=== PATIENT | female | born 1955 | race Caucasian/White ===

== ENCOUNTER 2023-06-22 10:32 | Outpatient (OUT) | payer MEDICARE, OTHER, SELFPAY ==
--- NOTE | 2023-06-22 10:51 | MM_ITS ---
Patient Name: RADHA PAUL MR#: [id number] : 1955 Exam Date: 06/22/2023 Ordering Doctor: Non-Staff Physician RADIOLOGY REPORT PROCEDURE: MM TOMOSYNTHESIS SCREENING BI COMPARISON: None. INDICATIONS: screening Calculator Name NCI Breast Cancer Risk Assessment Tool 5 Year Breast Cancer Risk 1.40% Lifetime Breast Cancer Risk 4.10% Personal Breast Cancer No Personal Ovarian Cancer No Treatments None Family Cancers Mother with pancreatic cancer at age ~60; Brother with stomach cancer at age 49. LOCATION: [facility] BREAST COMPOSITION: Scattered areas fibroglandular density. FINDINGS: DIAGNOSTIC CATEGORY 2--BENIGN FINDING. NO CHANGE FROM COMPARISON. Scattered benign-appearing calcifications are present. Scattered benign-appearing lymph nodes are present. RIGHT BREAST: No significant suspicious finding. LEFT BREAST: No significant suspicious finding. RECOMMENDATIONS: ROUTINE MAMMOGRAM AND CLINICAL EVALUATION IN 12 MONTHS. PLEASE NOTE: A NORMAL MAMMOGRAM DOES NOT EXCLUDE THE POSSIBILITY OF BREAST CANCER. A CLINICALLY SUSPICIOUS PALPABLE LUMP SHOULD BE BIOPSIED. Dictated by: Jakob Samson MD on 06/22/2023 at 13:25 Approved by: Jakob Samson MD on 06/22/2023 at 13:33
== END 2023-06-22 10:33 | disposition home or self-care (01) ==
LOC: MAMMO 10:44
PROVIDERS: Family Provider Family Medicine; PCP Nurse Practitioner Family
DX: Z12.31 Encounter for screening mammogram for malignant neoplasm of breast (principal); Z80.8 Family history of malignant neoplasm of other organs or systems; Z80.0 Family history of malignant neoplasm of digestive organs
CPT/HCPCS: 77063; 77067

== ENCOUNTER 2024-06-22 09:57 | Outpatient (OUT) | payer MEDICARE, OTHER, SELFPAY ==
--- NOTE | 2024-06-22 10:07 | MM_ITS ---
Patient Name: RADHA PAUL MR#: [id number] : 1955 Exam Date: 06/22/2024 Ordering Doctor: SHRUTHI MATT RADIOLOGY REPORT PROCEDURE: MM TOMOSYNTHESIS SCREENING BI COMPARISON: MM TOMOSYNTHESIS SCREENING BI, 06/22/2023. INDICATIONS: screening for malignant neoplasm of breast Z12.31 Calculator Name NCI Breast Cancer Risk Assessment Tool 5 Year Breast Cancer Risk 1.40% Lifetime Breast Cancer Risk 4.00% Personal Breast Cancer No Personal Ovarian Cancer No Treatments None Family Cancers Mother with pancreatic cancer at age ~60; Brother with stomach cancer at age 49. LOCATION: [facility] [place] BREAST COMPOSITION: There are scattered areas of fibroglandular density. FINDINGS: DIAGNOSTIC CATEGORY 1--NEGATIVE. RIGHT BREAST: No significant suspicious finding. LEFT BREAST: No significant suspicious finding. RECOMMENDATIONS: ROUTINE MAMMOGRAM AND CLINICAL EVALUATION IN 12 MONTHS. PLEASE NOTE: A NORMAL MAMMOGRAM DOES NOT EXCLUDE THE POSSIBILITY OF BREAST CANCER. A CLINICALLY SUSPICIOUS PALPABLE LUMP SHOULD BE BIOPSIED. Dictated by: Ari Hardy DO on 06/23/2024 at 15:46 Approved by: Ari Hardy DO on 06/23/2024 at 15:48
--- OUTSIDE RECORDS SUMMARY | 2024-06-22 10:19 | XMS_ITS | CCD ---
Author Organization [facility] Care Team Providers Care Film Splicer Name Role Phone Chucho MONTEJO Primary Care Physician URI MENJIVAR Attending Unavailable SHAUNNA BARRIENTOS Referring Unavailable URI MENJIVAR Attending Unavailable SHAUNNA BARRIENTOS Referring Unavailable SHAUNNA BARRIENTOS Primary Care Physician SHAUNNA BARRIENTOS Referring Unavailable Debra Cornell Attending Unavailable CLAIRE MATT Admitting Unavailable VERNELL, CLAIRE Attending Unavailable SHUANNA BARRIENTOS Attending Unavailable SHAUNNA BARRIENTOS Admitting Unavailable Vernell, [facility] Claire Primary Care Provider MD Christiano Beckford Attending Provider Claire Matt Primary Care Unavailable Christiano Beckford Attending Unavailable Christiano Beckford Admitting Unavailable VERNELL, CLAIRE Attending Unavailable VERNELL, CLAIRE Admitting Unavailable VERNELL, CLAIRE Attending Unavailable VERNELL, CLAIRE Admitting Unavailable VERNELL, CLAIRE Attending Unavailable VERNELL, CLAIRE Admitting Unavailable Allergies Allergy Classification Reported Allergen(s) Allergy Type Date of Onset Reaction(s) Facility (8 sources) Penicillin; Translations: [penicillin] Drug Allergy Eruption of skin (disorder) [facility] [place] (6 sources) Azithromycin; Translations: [azithromycin] Drug Allergy Tongue swelling (finding) [facility] (3 sources) Corticosteroids Allergy to substance 4 [facility] (3 sources) Penicillins Allergy to substance 4 [facility] Medications Current Medications Medication Drug Class(es) Dates Sig (Normalized) Sig (Original) atorvastatin 20 mg oral tablet (6 sources) HMG-CoA Reductase Inhibitor Start: 01-25-2024 Atorvastatin Active MG PO January 25, 2024 12:00am Start: 07-23-2023 Atorvastatin 2 0 mg tablet Active MG PO January 24, 2024 11:00pm 24 hr buPROPion hydrochloride 300 mg extended release oral tablet (6 sources) Aminoketone Start: 01-25-2024 take 1 tablet by mouth every twenty-four hours Bupropion Hcl 300 mg tablet extended release 24 hr Active MG PO January 24, 2024 11:00pm Start: 01-25-2024 Bupropion Hcl Active MG PO January 25, 2024 12:00am Start: 07-23-2023 buPROPion 150 mg/24 hours XL Tab 30 EA, 0 Refill(s), TAKE 1 TABLET BY MOUTH ONCE DAILY IN THE MORNING, Refills(s) 0 Start Date: 07/23/23 Status: Ordered calcium carbonate 1500 mg oral tablet (3 sources) Start: 07-23-2023 calcium (as ca rbonate) 600 mg oral tablet 0 Refill(s), Refills(s) 0 Start Date: 07/23/23 Status: Ordered Centrum Silver (3 sources) Start: 07-23-2023 Centrum Silver Refill(s) 0, 0 Refill(s) Start Date: 07/23/23 Status: Ordered Fish Oils (3 sources) Start: 07-23-2023 Fish Oil Refil l(s) 0, 0 Refill(s), Orally Once a day Start Date: 07/23/23 Status: Ordered furosemide 20 mg oral tablet (3 sources) Loop Diuretic Start: 01-25-2024 Furosemide 20 mg tablet Active MG PO January 24, 2024 11:00pm Start: 01-25-2024 Furosemide Act darya MG PO January 25, 2024 12:00am hydrOXYzine pamoate 25 mg oral capsule (6 sources) Antihistamine Start: 01-25-2024 Hydroxyzine Pa moate Active MG PO January 25, 2024 12:00am Start: 07-23-2023 Hydroxyzine Pa moate 25 mg capsule Active MG PO January 24, 2024 11:00pm lisinopril 2.5 mg oral tablet (8 sources) Angiotensin Converting Enzyme Inhibitor Start: 01-25-2024 Lisinopril Active MG PO January 25, 2024 12:00am Start: 03-06-2021 Lisinopril 2.5 mg tablet Active MG PO January 24, 2024 11:00pm meloxicam 15 mg oral tablet (3 sources) Nonsteroidal Anti-inflammatory Drug Start: 01-25-2024 Meloxicam 15 mg tablet Active MG PO January 24, 2024 11:00pm Start: 01-25-2024 Meloxicam Acti ve MG PO January 25, 2024 12:00am Miscellaneous Medical Supply misc (1 source) Start: 02-08-2024 Miscellaneous Medical Supply misc Active 2 EACH MISCELLANE Daily 2 February 07, 2024 11:00pm 30-40 thigh high compression stockings omeprazole 40 mg delayed release oral capsule (6 sources) Proton Pump Inhibitor Start: 01-25-2024 Omeprazole Active MG PO January 25, 2024 12:00am Start: 07-23-2023 Omeprazole 40 mg capsule,delayed release(DR/EC) Active MG PO January 24, 2024 11:00pm simvastatin 40 mg oral tablet (2 sources) HMG-CoA Reductase Inhibitor Start: 03-06-2021 take 1 tablet by mouth once daily at bedtime simvastatin 40 mg Tab 40 mg = 1 tab(s), Oral, Once a day (at bedtime), # 30 tab(s), Refills(s) 0 Start Date: 03/06/21 Status: Ordered Triamcinolone (2 sources) Corticosteroid Start: 03-06-2021 triamcinolone Top 0.1% Crm 30 gram 1 marilyn, Topical, TID, 30 gram, Refill(s) 0, [facility], 160.5, cm, 03/06/21 13:11:00 EST, Height/Length Dosing, 86.2, kg, 03/06/21 13:11:00 EST, Weight Dosing Start Date: 03/06/21 Status: Ordered Vitamin B-12 500 mcg oral tablet (3 sources) Start: 07-23-2023 Vitamin B-12 500 mcg oral tablet 0 Refill(s), Orally Once a day, Refills(s) 0 Start Date: 07/23/23 Status: Ordered Problems Problem Classification Problem Date Documented Date Episodic/Chronic Anxiety disorders (3 sources) Mixed anxiety and depressive disorder 07-23-2023 Chronic Disorders of lipid metabolism (3 sources) Hyperlipidemia 07-23-2023 Chronic Esophageal disorders (3 sources) Gastroesophageal reflux disease without esophagitis 07-23-2023 Chronic Essential hypertension (3 sources) Essential hypertension 07-23-2023 Chronic Genitourinary symptoms and ill-defined conditions (8 sources) Stress incontinence (female) (male); Translations: [Urge incontinence] Onset: 07-28-2023 Chronic Genitourinary symptoms and ill-defined conditions (4 sources) Sensation as if bladder still full; Translations: [Feeling of incomplete bladder emptying] Onset: 07-28-2023 Episodic Menopausal disorders (4 sources) Atrophic vaginitis; Translations: [Postmenopausal atrophic vaginitis] Onset: 07-28-2023 Chronic Other injuries and conditions due to external causes (5 sources) Insect bite - wound 03-12-2021 Episodic Unclassified (3 sources) Finding of sensation of bladder 07-28-2023 Varicose veins of lower extremity (7 sources) Varicose veins of lower extremity; Translations: [Varicose veins of bilateral lower extremities with other complications] Onset: 02-04-2024 01-25-2024 Episodic Results Test Name Value Interpretation Reference Range Facility CBC w/ Auto Diffon 4 Basophils/100 WBC (Bld) 0.7 % Normal 0.0-2.0 [facility] Comment on above: Performed By: #### 2 [id number] #### [facility] [address] [place] [address] Basophils/Leukocytes Auto (Bld) [Pure # fraction] 0.0 E9/L Normal 0.0-0.2 [facility] Comment on above: Performed By: #### 2 [id number] #### [facility] [address] [place] [address] Eosinophils (Bld) [#/Vol] 0.2 E9/L Normal 0.0-0.5 [facility] Comment on above: Performed By: #### 2 [id number] #### [facility] [address] [place] [address] Eosinophils/100 WBC (Bld) 3.6 % Normal 0.0-8.0 [facility] Comment on above: Performed By: #### 2 [id number] #### [facility] [address] [place] [address] Erythrocyte distribution width (RBC) [Ratio] 12.6 % Normal 10.9-14.2 [facility] Comment on above: Performed By: #### 2 [id number] #### [facility] [address] [place] [address] Hematocrit (Bld) [Volume fraction] 39.6 % Normal 34.0-46.0 [facility] Comment on above: Performed By: #### 2 [id number] #### [facility] [address] [place] [address] Hemoglobin (Bld) [Mass/Vol] 13.7 g/dL Normal 12.0-16.0 [facility] Comment on above: Performed By: #### 2 [id number] #### [facility] [address] [place] [address] Lymphocytes (Bld) [#/Vol] 1.7 E9/L Normal 1.0-4.0 [facility] Comment on above: Performed By: #### 2 [id number] #### [facility] [address] [place] [address] Lymphocytes/100 WBC (Bld) 33.0 % Normal 14.0-50.0 [facility] Comment on above: Performed By: #### 2 [id number] #### [facility] [address] [place] [address] MCH (RBC) [Entitic mass] 32.4 pg Normal 27.0-34.0 [facility] Comment on above: Performed By: #### 2 [id number] #### [facility] [address] [place] [address] MCHC (RBC) [Mass/Vol] 34.5 g/dL Normal 31.4-36.0 [facility] Comment on above: Performed By: #### 2 [id number] #### [facility] [address] [place] [address] MCV (RBC) [Entitic vol] 94.0 fL Normal 80.0-100.0 [facility] Comment on above: Performed By: #### 2 [id number] #### [facility] [address] [place] [address] Monocytes (Bld) [#/Vol] 0.5 E9/L Normal 0.2-1.0 [facility] Comment on above: Performed By: #### 2 [id number] #### [facility] [address] [place] [address] Neutrophils (Bld) [#/Vol] 2.8 E9/L Normal 2.0-7.5 [facility] Comment on above: Performed By: #### 2 [id number] #### [facility] [address] [place] [address] Neutrophils/100 WBC (Bld) 53.5 % Normal 36.0-75.0 [facility] Comment on above: Performed By: #### 2 [id number] #### [facility] [address] [place] [address] Platelet 274.0 E9/L Normal 150.0-500.0 [facility] Comment on above: Performed By: #### 2 [id number] #### [facility] [address] [place] [address] Platelet mean volume (Bld) [Entitic vol] 7.6 fL Normal 6.4-10.8 [facility] Comment on above: Performed By: #### 2 [id number] #### [facility] [address] [place] [address] RBC (Bld) [#/Vol] 4.2 E12/L Low 4.3-5.9 [facility] Comment on above: Performed By: #### 2 [id number] #### [facility] [address] [place] [address] WBC corrected for nucl RBC Auto (Bld) [#/Vol] 5.3 E9/L Normal 4.0-11.0 [facility] Comment on above: Performed By: #### 2 [id number] #### [facility] [address] [place] [address] CHEMISTRYOrdered By: SYSTEM SYSTEM on 04-04-2024 Albumin [Mass/Vol] 4.5 g/dL Normal 3.3 - 5.0 gm/dL [facility] Albumin/Globulin [Mass ratio] 1.6 {ratio} Normal 1.1 - 2.2 [facility] ALP [Catalytic activity/Vol] 67 [iU]/d Normal 21 - 98 Int._Unit/L [facility] ALT No additional P-5'-P [Catalytic activity/Vol] 13 [iU]/d Normal 6 - 46 Int._Unit/L [facility] Anion gap [Moles/Vol] 12 mmol/L Normal 6 - 16 mEq/L R emisol Chem AST [Catalytic activity/Vol] 16 [iU]/d Normal 5 - 43 Int._Unit/L [facility] Bilirubin [Mass/Vol] 0.6 mg/dL Normal 0.0 - 1 .1 mg/dL [facility] Calcium [Mass/Vol] 10.5 mg/dL Normal 8.9 - 11. 1 mg/dL [facility] Chloride [Moles/Vol] 103 mmol/L Normal 101 - 1 11 mmol/L [facility] CO2 [Moles/Vol] 31 mmol/L Normal 21 - 31 mmol/L [facility] Creatinine [Mass/Vol] 0.8 mg/dL Normal 0.5 - 1.3 mg/dL [facility] eGFR 79 mL/min/1.73 m2 Normal >=59mL/min /1. 73 m2 [facility] Globulin (S) [Mass/Vol] 2.8 g/dL Normal 1.4 - 4.0 gm/dL [facility] Glucose [Mass/Vol] 86 mg/dL Normal 55 - 199 mg/dL [facility] Potassium [Moles/Vol] 4.5 mmol/L Normal 3.5 - 5.3 mmol/L [facility] Protein [Mass/Vol] 7.3 g/dL Normal 6.0 - 7.8 gm/dL [facility] Sodium [Moles/Vol] 141 mmol/L Normal 135 - 145 mmol/L [facility] Urea nitrogen [Mass/Vol] 15 mg/dL Normal 5 - 21 mg/dL [facility] Urea nitrogen/Creatinine [Mass ratio] 19 mg/mg Normal 10 - 20 [facility] CHEMISTRYOrdered By: Donovan Meeks on 04-04-2024 HbA1c (Bld) [Mass fraction] 5.7 % Normal <=5.9% [facility] CMPon 04-04-2024 Albumin [Mass/Vol] 4.5 g/dL Normal 3.3-5.0 [facility] Comment on above: Performed By: #### 2 [id number] #### [facility] [address] [place] [address] Albumin/Globulin (S) [Mass conc ratio] 1.6 Normal 1.1-2.2 [facility] Comment on above: Performed By: #### 2 [id number] #### [facility] [address] [place] [address] ALP [Catalytic activity/Vol] 67 Int._Unit/L Normal 21-98 [facility] Comment on above: Performed By: #### 2 [id number] #### [facility] [address] [place] [address] ALT No additional P-5'-P [Catalytic activity/Vol] 13 Int._Unit/L Normal 6-46 [facility] Comment on above: Performed By: #### 2 [id number] #### [facility] [address] [place] [address] Anion gap [Moles/Vol] 12 mmol/L Normal 6-16 [facility] Comment on above: Performed By: #### 2 [id number] #### [facility] [address] [place] [address] AST [Catalytic activity/Vol] 16 Int._Unit/L Normal 5-43 [facility] Comment on above: Performed By: #### 2 [id number] #### [facility] [address] [place] [address] Bilirubin [Mass/Vol] 0.6 mg/dL Normal 0.0-1.1 [facility] Comment on above: Performed By: #### 2 [id number] #### [facility] [address] [place] [address] Calcium [Mass/Vol] 10.5 mg/dL Normal 8.9-11.1 [facility] Comment on above: Performed By: #### 2 [id number] #### [facility] [address] [place] [address] Chloride [Moles/Vol] 103 mmol/L Normal 101-111 [facility] Comment on above: Performed By: #### 2 [id number] #### [facility] [address] [place] [address] CO2 [Moles/Vol] 31 mmol/L Normal 21-31 [facility] Comment on above: Performed By: #### 2 [id number] #### [facility] [address] [place] [address] Creatinine [Mass/Vol] 0.8 mg/dL Normal 0.5-1.3 [facility] Comment on above: Performed By: #### 2 [id number] #### [facility] [address] [place] [address] Globulin (S) [Mass/Vol] 2.8 g/dL Normal 1.4-4.0 [facility] Comment on above: Performed By: #### 2 [id number] #### [facility] [address] [place] [address] Glucose [Mass/Vol] 86 mg/dL Normal 55-199 [facility] Comment on above: Performed By: #### 2 [id number] #### [facility] [address] [place] [address] Potassium [Moles/Vol] 4.5 mmol/L Normal 3.5-5.3 [facility] Comment on above: Performed By: #### 2 [id number] #### [facility] [address] [place] [address] Protein [Mass/Vol] 7.3 g/dL Normal 6.0-7.8 [facility] Comment on above: Performed By: #### 2 [id number] #### [facility] [address] [place] [address] Sodium [Moles/Vol] 141 mmol/L Normal 135-145 [facility] Comment on above: Performed By: #### 2 [id number] #### [facility] [address] [place] [address] Urea nitrogen [Mass/Vol] 15 mg/dL Normal 5-21 [facility] Comment on above: Performed By: #### 2 [id number] #### [facility] [address] [place] [address] Urea nitrogen/Creatinine [Mass ratio] 19 No Units Normal 10-20 [facility] Comment on above: Performed By: #### 2 [id number] #### [facility] [address] [place] [address] HEMATOLOGYOrdered By: SYSTEM SYSTEM on 04-04-2024 Basophils/100 WBC (Bld) 0.7 % Normal 0.0 - 2.0 % [facility] Basophils/Leukocytes Auto (Bld) [Pure # fraction] 0.0 E9/L Normal 0.0 - 0.2 E9/L [facility] Eosinophils (Bld) [#/Vol] 0.2 E9/L Normal 0.0 - 0.5 E9/L [facility] Eosinophils/100 WBC (Bld) 3.6 % Normal 0.0 - 8.0 % [facility] Erythrocyte distribution width (RBC) [Ratio] 12.6 % Normal 10.9 - 14.2 % [facility] Hematocrit (Bld) [Volume fraction] 39.6 % Normal 34.0 - 46.0 % [facility] Hemoglobin (Bld) [Mass/Vol] 13.7 g/dL Normal 12.0 - 16.0 gm/dL [facility] Lymphocytes (Bld) [#/Vol] 1.7 E9/L Normal 1.0 - 4.0 E9/L [facility] Lymphocytes/100 WBC (Bld) 33.0 % Normal 14.0 - 50.0 % [facility] MCH (RBC) [Entitic mass] 32.4 pg Normal 27.0 - 34.0 pg [facility] MCHC (RBC) [Mass/Vol] 34.5 g/dL Normal 31.4 - 36.0 gm/dL [facility] MCV (RBC) [Entitic vol] 94.0 fL Normal 80.0 - 100.0 fL [facility] Monocytes (Bld) [#/Vol] 0.5 E9/L Normal 0.2 - 1.0 E9/L [facility] Monocytes/100 WBC (Bld) 9.2 % Normal 4.0 - 14.0 % [facility] Neutrophils (Bld) [#/Vol] 2.8 E9/L Normal 2.0 - 7.5 E9/L [facility] Neutrophils/100 WBC (Bld) 53.5 % Normal 36.0 - 75.0 % [facility] Platelet 274.0 E9/L Normal 150.0 - 500.0 E9/L [facility] Platelet mean volume (Bld) [Entitic vol] 7.6 fL Normal 6.4 - 10.8 fL [facility] RBC (Bld) [#/Vol] 4.2 E12/L Low 4.3 - 5.9 E12/L [facility] WBC corrected for nucl RBC Auto (Bld) [#/Vol] 5.3 E9/L Normal 4.0 - 11.0 E9/L [facility] [id number] 04-04-2024 HbA1c (Bld) [Mass fraction] 5.7 % Normal <=5.9 [facility] Comment on above: Performed By: #### [id number] #### [facility] [address] [place] [address] eGFRon 04-04-2024 eGFR 79 mL/min/1.73 m2 Normal >=59 [facility] Comment on above: Performed By: #### 1 [id number] #### [facility] [address] [place] [address] US venous duplex LE BIon US venous duplex LE [facility] [address] [place] [id number] Ultrasound Report Signed Patient: Sulema Del Angel MR#: [id number] : 1955 Acct:[id number] Age/Sex: 68 / F ADM Date: 02/04/24 Loc: [facility] Room: Type: [facility] Attending Dr: Christiano Beckford MD Ordering Provider: Christiano Beckford MD Date of Service: 02/04/24 US/US venous duplex LE BI: [id number] - Varicose veins of bilateral lower extremities w... Copies to: Christiano Beckford MD Bilateral lower extremity full functional venous duplex Indication for study: Swollen painful legs PROCEDURE: Color-flow duplex scanning is used to interrogate the venous anatomy of both lower extremities. There is no evidence for deep vein thrombosis in either leg. Bilaterally the common femoral vein, femoral vein, and popliteal veins show good compressibility, color-flow, and augmentation. In the right leg there is severe reflux at the saphenofemoral junction for greater than 5 seconds. Right greater saphenous vein is 5 mm below the saphenofemoral junction and then normal size throughout the rest of the leg. It does give rise to 2 to 3 mm varicosities beginning in the thigh. The right lesser saphenous vein is competent and normal in size. Left greater saphenous vein has mild unsustained reflux with Valsalva. It is 5 mm below the saphenofemoral junction and then normal in size. It gives rise to 2 mm varicosities beginning in the thigh. The left lesser saphenous vein is normal in size. US/US venous duplex LE BI IMPRESSION: No evidence for deep vein thrombosis in either lower extremity. There is greater than 5 seconds of reflux at the right saphenofemoral junction. There is mild reflux at the left saphenofemoral junction. Scattered varicosities are seen bilaterally. Impression dictated by: Christiano Beckford M.D.02/08/2024 10:31 AM Dictation Location: [place] [address] Tech: Fay Luna Transcribed By: ANDREW 02/08/24 1031 Dictated By: Christiano Beckford MD 02/08/24 1030 Signed By: 02/08/24 1031 Normal [facility] CHEMISTRYOrdered By: Lazaro sotelo on 12-24-2023 Albumin [Mass/Vol] 4.1 g/dL Normal 3.3 - 5.0 gm/dL [facility] Albumin/Globulin [Mass ratio] 1.5 {ratio} Normal 1.1 - 2.2 [facility] ALP [Catalytic activity/Vol] 57 [iU]/d Normal 21 - 98 Int._Unit/L [facility] ALT No additional P-5'-P [Catalytic activity/Vol] 11 [iU]/d Normal 6 - 46 Int._Unit/L [facility] Anion gap [Moles/Vol] 9 mmol/L Normal 6 - 16 mEq/L R emisol Chem AST [Catalytic activity/Vol] 15 [iU]/d Normal 5 - 43 Int._Unit/L [facility] Bilirubin [Mass/Vol] 0.5 mg/dL Normal 0.0 - 1 .1 mg/dL [facility] Calcium [Mass/Vol] 9.8 mg/dL Normal 8.9 - 11. 1 mg/dL [facility] Chloride [Moles/Vol] 106 mmol/L Normal 101 - 1 11 mmol/L [facility] Cholesterol [Mass/Vol] 144 mg/dL Normal 120 - 200 mg/dL [facility] Cholesterol in HDL [Mass/Vol] 45 mg/dL Invalid Interpretation Code [facility] Comment on above: Result Comment: '>= 60 LOW RISK' '<= 40 HIGH RISK' Cholesterol in LDL [Mass/Vol] 74 mg/dL Normal <=129mg/dL [facility] Cholesterol in VLDL [Mass/Vol] 22 mg/dL Normal 7 - 40 mg/dL [facility] CO2 [Moles/Vol] 31 mmol/L Normal 21 - 31 mmol/L [facility] Creatinine [Mass/Vol] 0.9 mg/dL Normal 0.5 - 1.3 mg/dL [facility] eGFR 69 mL/min/1.73 m2 Normal >=59mL/min /1. 73 m2 [facility] Globulin (S) [Mass/Vol] 2.7 g/dL Normal 1.4 - 4.0 gm/dL [facility] Glucose [Mass/Vol] 92 mg/dL Normal 55 - 199 mg/dL [facility] Potassium [Moles/Vol] 4.6 mmol/L Normal 3.5 - 5.3 mmol/L [facility] Protein [Mass/Vol] 6.8 g/dL Normal 6.0 - 7.8 gm/dL [facility] Sodium [Moles/Vol] 141 mmol/L Normal 135 - 145 mmol/L [facility] Triglyceride [Mass/Vol] 109 mg/dL Normal <=149mg/dL [facility] Urea nitrogen [Mass/Vol] 17 mg/dL Normal 5 - 21 mg/dL [facility] Urea nitrogen/Creatinine [Mass ratio] 19 mg/mg Normal 10 - 20 [facility] CHEMISTRYOrdered By: Jed Contreras on 12-24-2023 HbA1c (Bld) [Mass fraction] 6.0 % High <=5.9% [facility] CMPon 12-24-2023 Albumin [Mass/Vol] 4.1 g/dL Normal 3.3-5.0 [facility] Comment on above: Performed By: #### 2 [id number] #### [facility] [address] [place] [address] Albumin/Globulin (S) [Mass conc ratio] 1.5 Normal 1.1-2.2 [facility] Comment on above: Performed By: #### 2 [id number] #### [facility] [address] [place] [address] ALP [Catalytic activity/Vol] 57 Int._Unit/L Normal 21-98 [facility] Comment on above: Performed By: #### 2 [id number] #### [facility] [address] [place] [address] ALT No additional P-5'-P [Catalytic activity/Vol] 11 Int._Unit/L Normal 6-46 [facility] Comment on above: Performed By: #### 2 [id number] #### [facility] [address] [place] [address] Anion gap [Moles/Vol] 9 mmol/L Normal 6-16 [facility] Comment on above: Performed By: #### 2 [id number] #### [facility] [address] [place] [address] AST [Catalytic activity/Vol] 15 Int._Unit/L Normal 5-43 [facility] Comment on above: Performed By: #### 2 [id number] #### [facility] [address] [place] [address] Bilirubin [Mass/Vol] 0.5 mg/dL Normal 0.0-1.1 [facility] Comment on above: Performed By: #### 2 [id number] #### [facility] [address] [place] [address] Calcium [Mass/Vol] 9.8 mg/dL Normal 8.9-11.1 [facility] Comment on above: Performed By: #### 2 [id number] #### [facility] [address] [place] [address] Chloride [Moles/Vol] 106 mmol/L Normal 101-111 [facility] Comment on above: Performed By: #### 2 [id number] #### [facility] [address] [place] [address] CO2 [Moles/Vol] 31 mmol/L Normal 21-31 [facility] Comment on above: Performed By: #### 2 [id number] #### [facility] [address] [place] [address] Creatinine [Mass/Vol] 0.9 mg/dL Normal 0.5-1.3 [facility] Comment on above: Performed By: #### 2 [id number] #### [facility] [address] [place] [address] Globulin (S) [Mass/Vol] 2.7 g/dL Normal 1.4-4.0 [facility] Comment on above: Performed By: #### 2 [id number] #### [facility] [address] [place] [address] Glucose [Mass/Vol] 92 mg/dL Normal 55-199 [facility] Comment on above: Performed By: #### 2 [id number] #### [facility] [address] [place] [address] Potassium [Moles/Vol] 4.6 mmol/L Normal 3.5-5.3 [facility] Comment on above: Performed By: #### 2 [id number] #### [facility] [address] [place] [address] Protein [Mass/Vol] 6.8 g/dL Normal 6.0-7.8 [facility] Comment on above: Performed By: #### 2 [id number] #### [facility] [address] [place] [address] Sodium [Moles/Vol] 141 mmol/L Normal 135-145 [facility] Comment on above: Performed By: #### 2 [id number] #### [facility] [address] [place] [address] Urea nitrogen [Mass/Vol] 17 mg/dL Normal 5-21 [facility] Comment on above: Performed By: #### 2 056330 #### [facility] [address] [place] [address] Urea nitrogen/Creatinine [Mass ratio] 19 No Units Normal 10-20 [facility] Comment on above: Performed By: #### 2 [id number] #### [facility] [address] [place] [address] [id number] 12-24-2023 HbA1c (Bld) [Mass fraction] 6.0 % High <=5.9 [facility] Comment on above: Performed By: #### 7 [id number] #### [facility] [address] [place] [address] Lipid Panelon 12-24-2023 Cholesterol [Mass/Vol] 144 mg/dL Normal 120-200 [facility] Comment on above: Performed By: #### 2 154701 #### [facility] [address] [place] [address] Cholesterol in HDL [Mass/Vol] 45 mg/dL Invalid Interpretation Code [facility] Comment on above: Result Comment: '>= 60 LOW RISK' '<= 40 HIGH RISK' Performed By: #### 2 483018 #### [facility] [address] [place] [address] Cholesterol in LDL [Mass/Vol] 74 mg/dL Normal <=129 [facility] Comment on above: Performed By: #### 2 795978 #### [facility] [address] [place] [address] Cholesterol in VLDL [Mass/Vol] 22 mg/dL Normal 7-40 [facility] Comment on above: Performed By: #### 2 944681 #### [facility] [address] [place] [address] Triglyceride [Mass/Vol] 109 mg/dL Normal <=149 [facility] Comment on above: Performed By: #### 2 705850 #### [facility] [address] [place] [address] eGFRon 12-24-2023 eGFR 69 mL/min/1.73 m2 Normal >=59 [facility] Comment on above: Order Comment: Order added by Discern Expert. Performed By: #### 1 [id number] #### [facility] [address] [place] [address] Formson 07-29-2023 Forms [id number] Normal [facility] Physician Referralon 024 Physician Referral [id number] Normal [facility] Screenson 07-29-2023 Screens [id number] Normal [facility] Patient Educationon 07-28-19 24 Patient Education Obstetrics and Gynecology Atrophic Vaginitis Atrophic vaginitis is a condition in which the tissues that line the vagina become dry and thin. This condition is most common in women who have stopped having regular menstrual periods (are in menopause). This usually starts when a woman is 45 to 55 years old. That is the time when a woman's estrogen levels begin to decrease. Estrogen is a female hormone. It helps to keep the tissues of the vagina moist. It stimulates the vagina to produce a clear fluid that lubricates the vagina for sex. This fluid also protects the vagina from infection. Lack of estrogen can cause the lining of the vagina to get thinner and dryer. The vagina may also shrink in size. It may become less elastic. Atrophic vaginitis tends to get worse over time as a woman's estrogen level drops. What are the causes? This condition is caused by the normal drop in estrogen that happens around the time of menopause. What increases the risk? Certain conditions or situations may lower a woman's estrogen level, leading to a higher risk for atrophic vaginitis. You are more likely to develop this condition if: ? You are taking medicines that block estrogen. ? You have had your ovaries removed. ? You are being treated for cancer with radiation or medicines (chemotherapy). ? You have given or are . ? You are older than age 50. ? You smoke. What are the signs or symptoms? Symptoms of this condition include: ? Pain, soreness, a feeling of pressure, or bleeding during sex (dyspareunia). ? Vaginal burning, irritation, or itching. ? Pain or bleeding when a speculum is used in a vaginal exam. ? Having burning pain while urinating. ? Vaginal discharge. In some cases, there are no symptoms. How is this diagnosed? This condition is diagnosed based on your medical history and a physical exam. This will include a pelvic exam that checks the vaginal tissues. Though rare, you may also have other tests, including: ? A urine test. ? A test that checks the acid balance in your vagina (acid balance test). How is this treated? Treatment for this condition depends on how severe your symptoms are. Treatment may include: ? Using an ezro-dlv-sdjbguv vaginal lubricant before sex. ? Using a long-acting vaginal moisturizer. ? Using low-dose estrogen for moderate to severe symptoms that do not respond to other treatments. Options include creams, tablets, and inserts (vaginal rings). Before you use a vaginal estrogen, tell your health care provider if you have a history of: ? Breast cancer. ? Endometrial cancer. ? Blood clots. If you are not sexually active and your symptoms are very mild, you may not need treatment. Follow these instructions at home: Medicines ? Take rtpn-bjq-irfvypx and prescription medicines only as told by your health care provider. ? Do not use herbal or alternative medicines unless your health care provider says that you can. ? Use trzl-szb-efyrsqj creams, lubricants, or moisturizers for dryness only as told by your health care provider. General instructions ? If your atrophic vaginitis is caused by menopause, discuss all of your menopause symptoms and treatment options with your health care provider. ? Do not douche. ? Do not use products that can make your vagina dry. These include: ? Scented feminine sprays. ? Scented tampons. ? Scented soaps. ? Vaginal sex can help to improve blood flow and elasticity of vaginal tissue. If you choose to have sex and it hurts, try using a water-soluble lubricant or moisturizer right before having sex. Contact a health care provider if: ? Your discharge looks different than normal. ? Your vagina has an unusual smell. ? You have new symptoms. ? Your symptoms do not improve with treatment. ? Your symptoms get worse. Summary ? Atrophic vaginitis is a condition in which the tissues that line the vagina become dry and thin. It is most common in women who have stopped having regular menstrual periods (are in menopause). ? Treatment options include using vaginal lubricants and low-dose vaginal estrogen. ? Contact a health care provider if your vagina has an unusual smell, or if your symptoms get worse or do not improve after treatment. This information is not intended to replace advice given to you by your health care provider. Make sure you discuss any questions you have with your health care provider. Document Revised: 10/04/2020 Document Reviewed: 10/04/2020 [employer] Patient Education ? 2022 [employer]. Overactive Bladder, Adult Overactive bladder is a condition in which a person has a sudden and frequent need to urinate. A person might also leak urine if he or she cannot get to the bathroom fast enough (urinary incontinence). Sometimes, symptoms can interfere with work or social activities. What are the causes? Overactive bladder is associated with poor nerve (more content not included)... Normal [facility] Urology Office/Clinic Noteon 07-28-2023 Urology Office/Clinic Note Chief Complaint New patient referred by Shaunna Barrientos for stress incontinence HPI Staff Evaluation requested by Shaunna Barrientos due to stress incontinence. Pt is a new pt, never before seen in our office. (Verified on DA) Dysuria: denies Incomplete bladder emptying: yes Hematuria: denies Frequency: yes Urgency: yes Nocturia: 1x a night Stream: strong and steady Leaking: yes Post void dripping: denies Wearing pads/ Depends: wears pads Urge incontinence: yes Stress incontinence: occasionally Incontinence without Sensory Awareness: denies Abdominal pain: denies Flank pain: denies Sexual complaints: _ History of Present Illness I have reviewed and verified the staff HPI to be accurate for this encounter. Portions of this record may have been created with voice recognition artificial intelligence software, specifically [employer] and or [employer]. Substitutions may have occurred due to the inherent limitations of voice recognition and artificial intelligence software. Review of Systems PHQ Score Initial Depression Screen Score: 0 SCORE Physical Exam Vitals & Measurements T: 36.8 ?C(Oral) HR: 90(Peripheral) RR: 16 BP: 131/74 HT: 63 in HT: 160 cm WT: 77.2 kg WT: 169.84 lb BMI: 30.16 General: Well developed, well nourished, in no acute distress. Genitourinary: Flank Pain: none. Bladder: nonpalpable. Assessment/Plan Completed review of external notes 1. Urge incontinence (N39.41: Urge incontinence) UA today with trace intact blood, no signs of infection. Patient reports increase in urge incontinence symptoms in the last 6 weeks. She reports that she believes she had a UTI around that time, but urge incontinence has not improved with rest of her symptoms. Wears pads which she changes 2-3 times daily. Voids about every 2 hours. She denies constipation. Does not take any diuretic medications. She does admit to heavy intake of hazelnut coffee, estimates between 4 and 5 cups of coffee daily. May consume a couple bottles of water otherwise. Had extensive conversation about bladder irritants and how these contribute to urinary symptoms. Recommend disc creased intake of coffee and increase oral hydration with water, flavored foster. Patient provided with bladder irritants literature. Discussed use of anticholinergic medication to treat urgency. Discussed typical side effects which include dry eyes, dry mouth, constipation. Side effects are often treated symptomatically. Medication is discontinued if side effects are intolerable. Patient notes that she really does not wish to go forth with any type of medication at this time. She wants to avoid medication at all costs. Patient to focus on behavioral modification, per her preference. -Follow-up 4 months per patient preference, sooner if needed. 2. Stress incontinence (N39.3: Stress incontinence (female) (male)) This is mild depending on lifting or movements. Discussed strengthening the pelvic floor with Kegel exercises. Patient notes she is never been able to do Kegels. Offered formal PFPT, but patient declined. Ordered: 35866 Measure Post Void residual urine and/or bladder capacity by US- non-imaging Body Mass Index (BMI) documented 3008F Current tobacco non-user 1036F Depression Screening Negative 3352F Influenza immunization status assessed 1030F Medication list documented in medical record 1159F Most recent diastolic blood pressure <80 mm Hg 3078F Patient screen for fall risk: no falls in last year or 1 fall with no injury in last year 1101F Review of all meds by a prescribing practitioner or clinical pharmacist documented in EHR 1160F Systolic BP 130-139 mm Hg (Most Recent) 3075F Urnls Dip Stick Auto w/o Microscopy POC 53691 3. Feeling of incomplete bladder emptying (R39.14: Feeling of incomplete bladder emptying) Patient reports that she often feels that she has not empty after she voids. Often immediately goes back to the bathroom after voiding to void again. PVR in office today 0 Discussed voiding maneuvers, double voiding techniques, timed voids. 4. Vaginal atrophy (N95.2: Postmenopausal atrophic vaginitis) Patient admits that she notices changes in vaginal tissue, dryness postmenopausal. Discussed use of topical estrogen vaginally to treat the symptoms, possibly improve frequency/urgency symptoms. Very small percentage of estrogen is systemically absorbed. Not shown to increase risk for malignancy. However, patient declines treatment at this time, as she states that she is very uncomfortable with use of topical hormone product. Follow-up With When Contact Information MARKOS Cornell APRN, Debra Knox, FAM, URL Additional Instructions: 4 months Patient Education Atrophic Vaginitis Overactive Bladder, Adult Urinary Incontinence Kegel Exercises Problem List/Past Medical History Ongoing Depression with anxiety Dysuria Essential hypertens (more content not included)... Normal [facility] Comment on above: Result Comment: Elec tronically Signed By: MARKOS Cornell APRN, [place] X\.br\Date and Time Signed: 07/28/23 14:29 EDT CHEMISTRYOrdered By: [employer] SYSTEM on 06-16-2023 Albumin [Mass/Vol] 4.2 g/dL Normal 3.3 - 5.0 gm/dL [facility] Albumin/Globulin [Mass ratio] 1.5 {ratio} Normal 1.1 - 2.2 [facility] Alk Phos 61 [iU]/d Normal 21 - 98 Int._Unit/L [facility] ALT 13 [iU]/d Normal 6 - 46 Int._Unit/L [facility] Anion gap [Moles/Vol] 12 mmol/L Normal 6 - 16 mEq/L R emisol Chem AST 16 [iU]/d Normal 5 - 43 Int._Unit/L [facility] Bili Total 0.5 mg/dL Normal 0.0 - 1.1 mg/dL [facility] Calcium [Mass/Vol] 10.0 mg/dL Normal 8.9 - 11. 1 mg/dL [facility] Chloride [Moles/Vol] 102 mmol/L Normal 101 - 1 11 mmol/L [facility] Cholesterol [Mass/Vol] 150 mg/dL Normal 120 - 200 mg/dL [facility] Cholesterol in HDL [Mass/Vol] 42 mg/dL Invalid Interpretation Code [facility] Comment on above: Result Comment: '>= 60 LOW RISK' '<= 40 HIGH RISK' Cholesterol in LDL [Mass/Vol] 64 mg/dL Normal <=129mg/dL [facility] Cholesterol in VLDL [Mass/Vol] 30 mg/dL Normal 7 - 40 mg/dL [facility] CO2 [Moles/Vol] 30 mmol/L Normal 21 - 31 mmol/L [facility] Creatinine [Mass/Vol] 1.0 mg/dL Normal 0.5 - 1.3 mg/dL [facility] eGFR 61 mL/min/1.73 m2 Normal >=59mL/min /1. 73 m2 [facility] Globulin (S) [Mass/Vol] 2.8 g/dL Normal 1.4 - 4.0 gm/dL [facility] Glucose [Mass/Vol] 102 mg/dL Normal 55 - 199 mg/dL [facility] Potassium [Moles/Vol] 4.8 mmol/L Normal 3.5 - 5.3 mmol/L [facility] Protein [Mass/Vol] 7.0 g/dL Normal 6.0 - 7.8 gm/dL [facility] Sodium [Moles/Vol] 139 mmol/L Normal 135 - 145 mmol/L [facility] Triglyceride [Mass/Vol] 151 mg/dL High <=149mg/dL [facility] Urea nitrogen [Mass/Vol] 16 mg/dL Normal 5 - 21 mg/dL [facility] Urea nitrogen/Creatinine [Mass ratio] 16 mg/mg Normal 10 - 20 [facility] CHEMISTRYOrdered By: Mohinder lloyd on 06-16-2023 HbA1c (Bld) [Mass fraction] 6.2 % High <=5.9% [facility] CMPon 06-16-2023 Albumin [Mass/Vol] 4.2 g/dL Normal 3.3-5.0 [facility] Comment on above: Performed By: #### 2 477233, 5368604, [id number], [id number] #### [facility] [address] [place] [address] Albumin/Globulin [Mass ratio] 1.5 {ratio} Normal 1.1-2.2 [facility] Comment on above: Performed By: #### 2 779076, 7691837, [id number], [id number] #### [facility] [address] [place] [address] Alk Phos 61 Int._Unit/L Normal 21-98 [facility] Comment on above: Performed By: #### 2 927636, 5325208, 80013850, [id number] #### [facility] [address] [place] [address] ALT 13 Int._Unit/L Normal 6-46 [facility] Comment on above: Performed By: #### 2 048275, 3383658, 39355536, [id number] #### [facility] [address] [place] [address] Anion gap [Moles/Vol] 12 mmol/L Normal 6-16 [facility] Comment on above: Performed By: #### 2 015990, 8245465, 45116813, [id number] #### [facility] [address] [place] [address] AST 16 Int._Unit/L Normal 5-43 [facility] Comment on above: Performed By: #### 2 250059, 8016271, 09678153, [id number] #### [facility] [address] [place] [address] Bili Total 0.5 mg/dL Normal 0.0-1.1 [facility] Comment on above: Performed By: #### 2 267690, 3158753, 96619250, [id number] #### [facility] [address] [place] [address] BUN/Creat Ratio 16 No Units Normal 10-20 [facility] Comment on above: Performed By: #### 2 257374, 7157361, 65250345, [id number] #### [facility] [address] [place] [address] Calcium [Mass/Vol] 10.0 mg/dL Normal 8.9-11.1 [facility] Comment on above: Performed By: #### 2 586526, 1102780, 79996483, [id number] #### [facility] [address] [place] [address] Chloride [Moles/Vol] 102 mmol/L Normal 101-111 [facility] Comment on above: Performed By: #### 2 180915, 1394250, 62510258, [id number] #### [facility] [address] [place] [address] CO2 [Moles/Vol] 30 mmol/L Normal 21-31 [facility] Comment on above: Performed By: #### 2 704488, 6031183, 10269524, [id number] #### [facility] [address] [place] [address] Creatinine [Mass/Vol] 1.0 mg/dL Normal 0.5-1.3 [facility] Comment on above: Performed By: #### 2 228877, 0768634, 85551653, [id number] #### [facility] [address] [place] [address] Globulin (S) [Mass/Vol] 2.8 g/dL Normal 1.4-4.0 [facility] Comment on above: Performed By: #### 2 561071, 3796941, 91215198, [id number] #### [facility] [address] [place] [address] Glucose [Mass/Vol] 102 mg/dL Normal 55-199 [facility] Comment on above: Performed By: #### 2 469504, 5297663, 45984735, [id number] #### [facility] [address] [place] [address] Potassium [Moles/Vol] 4.8 mmol/L Normal 3.5-5.3 [facility] Comment on above: Performed By: #### 2 731307, 5008192, 66466990, [id number] #### [facility] [address] [place] [address] Protein [Mass/Vol] 7.0 g/dL Normal 6.0-7.8 [facility] Comment on above: Performed By: #### 2 355619, 6390619, 82297203, [id number] #### [facility] [address] [place] [address] Sodium [Moles/Vol] 139 mmol/L Normal 135-145 [facility] Comment on above: Performed By: #### 2 277398, 4465941, 35582446, 389482655 #### [facility] [address] [place] [address] Urea nitrogen [Mass/Vol] 16 mg/dL Normal 5-21 [facility] Comment on above: Performed By: #### 2 645226, 9376055, 35315438, [id number] #### [facility] [address] [place] [address] [id number] 06-16-2023 HbA1c (Bld) [Mass fraction] 6.2 % High <=5.9 [facility] Comment on above: Performed By: #### 2 846689, 1271023, 45977782, [id number] ####[facility] [address] [place] [address] Lipid Panelon 06-16-2023 Cholesterol [Mass/Vol] 150 mg/dL Normal 120-200 [facility] Comment on above: Performed By: #### 2 149214, 2520752, 28717988, 968191684 #### [facility] [address] [place] [address] Cholesterol in HDL [Mass/Vol] 42 mg/dL Invalid Interpretation Code [facility] Comment on above: Result Comment: '>= 60 LOW RISK' '<= 40 HIGH RISK' Performed By: #### 2 126692, 7233646, 89656923, [id number] #### [facility] [address] [place] [address] Cholesterol in LDL [Mass/Vol] 64 mg/dL Normal <=129 [facility] Comment on above: Performed By: #### 2 193042, 1696684, 98339833, [id number] #### [facility] [address] [place] [address] Cholesterol in VLDL [Mass/Vol] 30 mg/dL Normal 7-40 [facility] Comment on above: Performed By: #### 2 100871, 3759059, 58498064, [id number] #### [facility] [address] [place] [address] Triglyceride [Mass/Vol] 151 mg/dL High <=149 [facility] Comment on above: Performed By: #### 2 922734, 8448808, 93025395, [id number] #### [facility] [address] [place] [address] Physician Orderon 06-16-2023 Physician Order [id number] Normal [facility] eGFRon 06-16-2023 eGFR 61 mL/min/1.73 m2 Normal >=59 [facility] Comment on above: Order Comment: Order added by Discern Expert. Performed By: #### 2 568215, 4560594, 48262826, [id number] #### [facility] [address] [place] [address] CHEMISTRYOrdered By: SYSTEM SYSTEM on 12-09-2022 Albumin [Mass/Vol] 4.2 g/dL Normal 3.3 - 5.0 gm/dL [facility] Remisol Albumin/Globulin [Mass ratio] 1.4 {ratio} Normal 1.1 - 2.2 [facility] Remisol ALP [Catalytic activity/Vol] 70 [iU]/d Normal 21 - 98 Int._Unit/L [facility] Remisol ALT No additional P-5'-P [Catalytic activity/Vol] 21 [iU]/d Normal 6 - 46 Int._Unit/L [facility] Remisol Anion gap [Moles/Vol] 10 mmol/L Normal 6 - 16 mEq/L [facility] Remisol AST [Catalytic activity/Vol] 21 [iU]/d Normal 5 - 43 Int._Unit/L [facility] Bilirubin [Mass/Vol] 0.7 mg/dL Normal 0.0 - 1 .1 mg/dL [facility] Calcium [Mass/Vol] 9.9 mg/dL Normal 8.9 - 11. 1 mg/dL [facility] Chloride [Moles/Vol] 104 mmol/L Normal 101 - 1 11 mmol/L [facility] Cholesterol [Mass/Vol] 154 mg/dL Normal 120 - 200 mg/dL [facility] Cholesterol in HDL [Mass/Vol] 48 mg/dL Invalid Interpretation Code [facility]isol Cholesterol in LDL [Mass/Vol] 73 mg/dL Normal <=129mg/dL [facility] Cholesterol in VLDL [Mass/Vol] 22 mg/dL Normal 7 - 40 mg/dL [facility] CO2 [Moles/Vol] 30 mmol/L Normal 21 - 31 mmol/L [facility] Creatinine [Mass/Vol] 0.8 mg/dL Normal 0.5 - 1.3 mg/dL [facility] GFR/1.73 sq M.predicted among non-blacks MDRD (S/P/Bld) [Vol rate/Area] 80 mL/min/1.73 m2 Normal >=59mL/min/1. 73 m2 [facility] S Globulin (S) [Mass/Vol] 3.0 g/dL Normal 1.4 - 4.0 gm/dL [facility] Glucose [Mass/Vol] 111 mg/dL Normal 55 - 199 mg/dL [facility] Potassium [Moles/Vol] 4.5 mmol/L Normal 3.5 - 5.3 mmol/L [facility] Protein [Mass/Vol] 7.2 g/dL Normal 6.0 - 7.8 gm/dL [facility] Sodium [Moles/Vol] 139 mmol/L Normal 135 - 145 mmol/L [facility] Triglyceride [Mass/Vol] 109 mg/dL Normal <=149mg/dL [facility] Urea nitrogen [Mass/Vol] 16 mg/dL Normal 5 - 21 mg/dL [facility] Urea nitrogen/Creatinine [Mass ratio] 20 mg/mg Normal 10 - 20 [facility] CHEMISTRYOrdered By: Ning Murillo se on 12-09-2022 HbA1c (Bld) [Mass fraction] 6.4 % High <=5.9% [facility] Vital Signs Date Time Vital Sign Value Performing Clinician Facility 05-16-2024 15:27-0500 Body temperature 97.5 [degF] [facility] 05-16-2024 15:27-0500 Diastolic blood pressure 78 mm[Hg] [facility] 05-16-2024 15:27-0500 Heart rate 95 /min [facility] 05-16-2024 15:27-0500 SaO2% (BldA) [Mass fraction] 97 % [facility] 05-16-2024 15:27-0500 Systolic blood pressure 110 mm[Hg] [facility] 01-25-2024 15:07-0400 Body height 161.29 cm [facility] 01-25-2024 15:07-0400 Body mass index (BMI) [Ratio] 27.1 kg/m2 [facility] 01-25-2024 15:07-0400 Body temperature 97.8 [degF] [facility] 01-25-2024 15:07-0400 Body weight 70.76 kg [facility] 01-25-2024 15:07-0400 Diastolic blood pressure 60 mm[Hg] [facility] 01-25-2024 15:07-0400 Heart rate 110 /min [facility] 01-25-2024 15:07-0400 SaO2% (BldA) [Mass fraction] 97 % [facility] 01-25-2024 15:07-0400 Systolic blood pressure 110 mm[Hg] [facility] 07-28-2023 13:33-0400 Blood Pressure Location Debra Orzech [facility] 07-28-2023 13:33-0400 Body temperature 98.24 [degF] Debra Orzech [facility] 07-28-2023 13:33-0400 Diastolic blood pressure 74 mm[Hg] Debra Orzech [facility] 07-28-2023 13:33-0400 Heart rate 90 /min Debra Orzech [facility] 07-28-2023 13:33-0400 Respiratory rate 16 /min Debra Orzech [facility] 07-28-2023 13:33-0400 Systolic blood pressure 131 mm[Hg] Debra Orzech [facility] Encounters Encounter Date Encounter Type Care Provider Facility Start: 06-17-2024 End: 06-17-2024 ambulatory [facility] Work Phone: Start: 06-17-2024 End: 06-17-2024 Patient encounter procedure [facility] Work Phone: Start: 05-16-2024 End: 05-16-2024 Patient encounter procedure [facility] [place] Work Phone: Start: 04-15-2024 End: 04-15-2024 Patient encounter procedure [facility] Work Phone: Start: 04-04-2024 End: 04-04-2024 Lab Drop off CLAIRE MATT [facility] Start: 04-04-2024 End: 04-04-2024 ambulatory CLAIRE MATT [facility] Start: 02-04-2024 End: 02-04-2024 Patient encounter procedure [facility] Claire Vernell Work Phone: [facility] Start: 02-04-2024 End: 02-04-2024 ambulatory [facility] Claire Vernell Work Phone: [facility] Work Phone: Start: 01-25-2024 End: 01-25-2024 ambulatory [facility] Work Phone: Start: 01-25-2024 End: 01-25-2024 Patient encounter procedure [facility] [place] Work Phone: Start: 12-24-2023 End: 12-24-2023 Lab Drop off CLAIRE Javier MATT [facility] Start: 12-24-2023 End: 12-24-2023 ambulatory CLAIRE MATT [facility] Start: 07-28-2023 End: 07-28-2023 ambulatory SHAUNNA BARRIENTOS Facility:[facility] Start: 07-28-2023 End: 07-28-2023 Patient encounter procedure Debra X Kraig [facility] Start: 07-09-2023 ambulatory SHAUNNA BARRIENTOS Facility:[facility] Start: 06-16-2023 End: 06-16-2023 Lab Drop off SHAUNNA BARRIENTOS [facility] Start: 06-16-2023 End: 06-16-2023 ambulatory SHAUNNA BARRIENTOS [facility] Start: 05-11-2023 End: 05-11-2023 ambulatory URI Shanks OTTO Not Available Start: 04-27-2023 End: 04-27-2023 ambulatory URI Shanks OTTO Not Available Start: 12-09-2022 End: 12-09-2022 Lab Drop off SHAUNNA Avelina SARAHGUTIERREZ [facility] Procedures Date Procedure Procedure Detail Performing Clinician Colonoscopy SHAUNNA BARRIENTOS Dilation and curettage of uterus SHAUNNA BARRIENTOS Entire left knee (body structure) SHAUNNA BARRIENTOS Injury of left foot (disorder) SHAUNNA DANE Ligation of fallopian tube A urora Kraig Plan of Treatment Date Care Activity Detail Author Start: 02-04-2024 Duplex scan of lower limb veins US venous duplex LE [facility] Start: 02-04-2024 US Lower extremity v ein - bilateral [facility] US [facility] v n - [facility] Immunizations Immunization Date Immunization Notes Care Provider Mike perez 01-22-2023 influenza virus vaccine, unspecified formulation Debra Cornell [facility] Kristofer Payers Date Payer Category Payer Medicare [id number] 2007 Medicare [id number] 1955 Unknown [id number] [id number] 1955 Unknown [id number] [id number] [id number] 1955 Unknown [id number] 2.16.8 [id number] 1955 Unknown [id number] [id number] [id number] 1955 Unknown [id number] 2.16.8 [id number] 1955 Unknown [id number] 2.16.8 [id number] 1955 Unknown [id number] 2.16.8 [id number] Unknown Regular Insurance [id number] Social History Date Type Detail Facility Start: 03-06-2021 End: 01-25-2024 Tobacco smoking status Ex-smoker (finding) [facility] Tobacco smoking status Never [facility] Sex Assigned At Female [facility] Start: 1955 Sex Assigned At Female F [facility] Start: 06-17-2024 Sex Female (finding) [facility] Functional Status Date Assessment Result Facility 07-28-2023 Functional Status N/A [facility] Evaluation note 05-16-2024 Note Date & Type Note Facility 05-16-2024 Evaluation note Diagnosis Onset Date Resolution Varicose veins of bilateral lower extremities with other complications acute May 16 3:26pm [facility] Work Phone: Clinical Note 08-14-2023 Note Date & Type Note Facility 08-14-2023 Note - From: Jocelyn Ernst To: EU - Administrative; Sent: 07/28/2023 14:20:11 EDT Show up: 07/28/2023 14:20:00 EDT Subject: Ambulatory Reminder Due Date/Time: 11/19/2023 14:20:00 EDT Reminder/Recall Patient needs scheduled for a 4 month F/U in [place] with MADELINE Called patient to set up an November 21 month f/up with Debra. Patient explained that since she cut way back on the coffee to only two cups a day, her problems have majorly improved and felt she didn't even need to be seen again so deferred appt. I made sure patient knew to call us anytime that she feels she needs to be seen again - pt relayed understanding and said she has our phone number. From: Emili Renee ( - Administrative) To: MARKOS Cornell APRN, Debra Knox; Sent: 08/13/2023 14:21:07 EDT Show up: 08/13/2023 14:20:00 EDT Subject: RE: Ambulatory Reminder This is great to hear, thanks! [facility] Hospital Discharge instructions 07-28-2023 Note Date & Type Note Facility 07-28-2023 Hospital Discharg e instructions Patient Education 07/28/2023 14:29:10 Atrophic Vaginitis Atrophic Vaginitis Atrophic vaginitis is a condition in which the tissues that line the vagina become dry and thin. This condition is most common in women who have stopped having regular menstrual periods (are in menopause). This usually starts when a woman is 45 to 55 years old. That is the time when a woman's estrogen levels begin to decrease. Estrogen is a female hormone. It helps to keep the tissues of the vagina moist. It stimulates the vagina to produce a clear fluid that lubricates the vagina for sex. This fluid also protects the vagina from infection. Lack of estrogen can cause the lining of the vagina to get thinner and dryer. The vagina may also shrink in size. It may become less elastic. Atrophic vaginitis tends to get worse over time as a woman's estrogen level drops. What are the causes? This condition is caused by the normal drop in estrogen that happens around the time of menopause. What increases the risk? Certain conditions or situations may lower a woman's estrogen level, leading to a higher risk for atrophic vaginitis. You are more likely to develop this condition if: You are taking medicines that block estrogen. You have had your ovaries removed. You are being treated for cancer with radiation or medicines (chemotherapy). You have given or are . You are older than age 50. You smoke. What are the signs or symptoms? Symptoms of this condition include: Pain, soreness, a feeling of pressure, or bleeding during sex (dyspareunia). Vaginal burning, irritation, or itching. Pain or bleeding when a speculum is used in a vaginal exam. Having burning pain while urinating. Vaginal discharge. In some cases, there are no symptoms. How is this diagnosed? This condition is diagnosed based on your medical history and a physical exam. This will include a pelvic exam that checks the vaginal tissues. Though rare, you may also have other tests, including: A urine test. A test that checks the acid balance in your vagina (acid balance test). How is this treated? Treatment for this condition depends on how severe your symptoms are. Treatment may include: Using an peoi-qkt-qedeojj vaginal lubricant before sex. Using a long-acting vaginal moisturizer. Using low-dose estrogen for moderate to severe symptoms that do not respond to other treatments. Options include creams, tablets, and inserts (vaginal rings). Before you use a vaginal estrogen, tell your health care provider if you have a history of: ?Breast cancer. ?Endometrial cancer. ?Blood clots. If you are not sexually active and your symptoms are very mild, you may not need treatment. Follow these instructions at home: Medicines Take strh-wlh-xhmxnle and prescription medicines only as told by your health care provider. Do not use herbal or alternative medicines unless your health care provider says that you can. Use knuf-fdf-qjuzvyf creams, lubricants, or moisturizers for dryness only as told by your health care provider. General instructions If your atrophic vaginitis is caused by menopause, discuss all of your menopause symptoms and treatment options with your health care provider. Do not douche. Do not use products that can make your vagina dry. These include: ?Scented feminine sprays. ?Scented tampons. ?Scented soaps. Vaginal sex can help to improve blood flow and elasticity of vaginal tissue. If you choose to have sex and it hurts, try using a water-soluble lubricant or moisturizer right before having sex. Contact a health care provider if: Your discharge looks different than normal. Your vagina has an unusual smell. You have new symptoms. Your symptoms do not improve with treatment. Your symptoms get worse. Summary Atrophic vaginitis is a condition in which the tissues that line the vagina become dry and thin. It is most common in women who have stopped having regular menstrual periods (are in menopause). Treatment options include using vaginal lubricants and low-dose vaginal estrogen. Contact a health care provider if your vagina has an unusual smell, or if your symptoms get worse or do not improve after treatment. This information is not intended to replace advice given to you by your health care provider. Make sure you discuss any questions you have with your health care provider. Document Revised: 10/04/2020 Document Reviewed: 10/04/2020 [employer] Patient Education 2022 [employer]. 07/28/2023 14:29:06 Overactive Bladder, Adult Overactive Bladder, Adult Overactive bladder is a condition in which a person has a sudden and frequent need to urinate. A person might also leak urine if he or she cannot get to the bathroom fast enough (urinary incontinence). Sometimes, symptoms can interfere with work or social activities. What are the causes? Overactive bladder is associated with poor nerve signals between your bladder and your brain. Your bladder may get the signal to empty before it is full. You may also have very sensitive muscles that make your bladder squeeze too soon. This condition may also be caused by other factors, such as: Medical conditions: ?Urinary tract infection. ?Infection of nearby tissues. ?Prostate enlargement. ?Bladder stones, inflammation, or tumors. ?Diabetes. ?Muscle or nerve weakness, especially from these conditions: ?A spinal cord injury. ?Stroke. ?Multiple sclerosis. ?Parkinson's disease. Other causes: ?Surgery on the uterus or urethra. ?Drinking too much caffeine or alcohol. ?Certain medicines, especially those that eliminate extra fluid in the body (diuretics). ?Constipation. What increases the risk? You may be at greater risk for overactive bladder if you: Are an older adult. Smoke. Are going through menopause. Have prostate problems. Have a neurological disease, such as stroke, dementia, Parkinson's disease, or multiple sclerosis (MS). Eat or drink alcohol, spicy food, caffeine, and other things that irritate the bladder. Are overweight or obese. What are the signs or symptoms? Symptoms of this condition include a sudden, strong urge to urinate. Other symptoms include: Leaking urine. Urinating 8 or more times a day. Waking up to urinate 2 or more times overnight. How is this diagnosed? This condition may be diagnosed based on: Your symptoms and medical history. A physical exam. Blood or urine tests to check for possible causes, such as infection. You may also need to see a health care provider who specializes in urinary tract problems. This is called a urologist. How is this treated? Treatment for overactive bladder depends on the cause of your condition and whether it is mild or severe. Treatment may include: Bladder training, such as: ?Learning to control the urge to urinate by following a schedule to urinate at regular intervals. ?Doing Kegel exercises to strengthen the pelvic floor muscles that support your bladder. Special devices, such as: ?Biofeedback. This uses sensors to help you become aware of your body's signals. ?Electrical stimulation. This uses electrodes placed inside the body (implanted) or outside the body. These electrodes send gentle pulses of electricity to strengthen the nerves or muscles that control the bladder. ?Women may use a plastic device, called a pessary, that fits into the vagina and supports the bladder. Medicines, such as: ?Antibiotics to treat bladder infection. ?Antispasmodics to stop the bladder from releasing urine at the wrong time. ?Tricyclic antidepressants to relax bladder muscles. ?Injections of botulinum toxin type A directly into the bladder tissue to relax bladder muscles. Surgery, such as: ?A device may be implanted to help manage the nerve signals that control urination. ?An electrode may be implanted to stimulate electrical signals in the bladder. ?A procedure may be done to change the shape of the bladder. This is done only in very severe cases. Follow these instructions at home: Eating and drinking Make diet or lifestyle changes recommended by your health care provider. These may include: ?Drinking fluids throughout the day and not only with meals. ?Cutting down on caffeine or alcohol. ?Eating a healthy and balanced diet to prevent constipation. This may include: ?Choosing foods that are high in fiber, such as beans, whole grains, and fresh fruits and vegetables. ?Limiting foods that are high in fat and processed sugars, such as fried and sweet foods. Lifestyle Lose weight if needed. Do not use any products that contain nicotine or tobacco. These include cigarettes, chewing tobacco, and vaping devices, such as e-cigarettes. If you need help quitting, ask your health care provider. General instructions Take fhci-jvt-pefxkgl and prescription medicines only as told by your health care provider. If you were prescribed an antibiotic medicine, take it as told by your health care provider. Do not stop taking the antibiotic even if you start to feel better. Use any implants or pessary as told by your health care provider. If needed, wear pads to absorb urine leakage. Keep a log to track how much and when you drink, and when you need to urinate. This will help your health care provider monitor your condition. Keep all follow-up visits. This is important. Contact a health care provider if: You have a fever or chills. Your symptoms do not get better with treatment. Your pain and discomfort get worse. You have more frequent urges to urinate. Get help right away if: You are not able to control your bladder. Summary Overactive bladder refers to a condition in which a person has a sudden and frequent need to urinate. Several conditions may lead to an overactive bladder. Treatment for overactive bladder depends on the cause and severity of your condition. Making lifestyle changes, doing Kegel exercises, keeping a log, and taking medicines can help with this condition. This information is not intended to replace advice given to you by your health care provider. Make sure you discuss any questions you have with your health care provider. Document Revised: 12/24/2020 Document Reviewed: 12/24/2020 [employer] Patient Education 2022 [employer]. 07/28/2023 14:29:04 Urinary Incontinence Urinary Incontinence Urinary incontinence refers to a condition in which a person is unable to control where and when to pass urine. A person with this condition will urinate involuntarily. This means that the person urinates when he or she does not mean to. What are the causes? This condition may be caused by: Medicines. Infections. Constipation. Overactive bladder muscles. Weak bladder muscles. Weak pelvic floor muscles. These muscles provide support for the bladder, intestine, and, in women, the uterus. Enlarged prostate in men. The prostate is a gland near the bladder. When it gets too big, it can pinch the urethra. With the urethra blocked, the bladder can weaken and lose the ability to empty properly. Surgery. Emotional factors, such as anxiety, stress, or post-traumatic stress disorder (PTSD). Spinal cord injury, nerve injury, or other neurological conditions. Pelvic organ prolapse. This happens in women when organs move out of place and into the vagina. This movement can prevent the bladder and urethra from working properly. What increases the risk? The following factors may make you more likely to develop this condition: Age. The older you are, the higher the risk. Obesity. Being physically inactive. and childbirth. Menopause. Diseases that affect the nerves or spinal cord. Long-term, or chronic, coughing. This can increase pressure on the bladder and pelvic floor muscles. What are the signs or symptoms? Symptoms may vary depending on the type of urinary incontinence you have. They include: A sudden urge to urinate, and passing urine involuntarily before you can get to a bathroom (urge incontinence). Suddenly passing urine when doing activities that force urine to pass, such as coughing, laughing, exercising, or sneezing (stress incontinence). Needing to urinate often but urinating only a small amount, or constantly dribbling urine (overflow incontinence). Urinating because you cannot get to the bathroom in time due to a physical disability, such as arthritis or injury, or due to a communication or thinking problem, such as Alzheimer's disease (functional incontinence). How is this diagnosed? This condition may be diagnosed based on: Your medical history. A physical exam. Tests, such as: ?Urine tests. ?X-rays of your kidney and bladder. ?Ultrasound. ?CT scan. ?Cystoscopy. In this procedure, a health care provider inserts a tube with a light and camera (cystoscope) through the urethra and into the bladder to check for problems. ?Urodynamic testing. These tests assess how well the bladder, urethra, and sphincter can store and release urine. There are different types of urodynamic tests, and they vary depending on what the test is measuring. To help diagnose your condition, your health care provider may recommend that you keep a log of when you urinate and how much you urinate. How is this treated? Treatment for this condition depends on the type of incontinence that you have and its cause. Treatment may include: Lifestyle changes, such as: ?Quitting smoking. ?Maintaining a healthy weight. ?Staying active. Try to get 150 minutes of moderate-intensity exercise every week. Ask your health care provider which activities are safe for you. ?Eating a healthy diet. ?Avoid high-fat foods, like fried foods. ?Avoid refined carbohydrates like white bread and white rice. ?Limit how much alcohol and caffeine you drink. ?Increase your fiber intake. Healthy sources of fiber include beans, whole grains, and fresh fruits and vegetables. Behavioral changes, such as: ?Pelvic floor muscle exercises. ?Bladder training, such as lengthening the amount of time between bathroom breaks, or using the bathroom at regular intervals. ?Using techniques to suppress bladder urges. This can include distraction techniques or controlled breathing exercises. Medicines, such as: ?Medicines to relax the bladder muscles and prevent bladder spasms. ?Medicines to help slow or prevent the growth of a man's prostate. ?Botox injections. These can help relax the bladder muscles. Treatments, such as: ?Using pulses of electricity to help change bladder reflexes (electrical nerve stimulation). ?For women, using a nurses medical assistants phlebotomists to prevent urine leaks. This is a small, tampon-like, disposable device that is inserted into the urethra. ?Injecting collagen or carbon beads (bulking agents) into the urinary sphincter. These can help thicken tissue and close the bladder opening. ?Surgery. Follow these instructions at home: Lifestyle Limit alcohol and caffeine. These can fill your bladder quickly and irritate it. Keep yourself clean to help prevent odors and skin damage. Ask your health care provider about special skin creams and cleansers that can protect the skin from urine. Consider wearing pads or adult diapers. Make sure to change them regularly, and always change them right after experiencing incontinence. General instructions Take eazm-sto-dwsrdeg and prescription medicines only as told by your health care provider. Use the bathroom about every 3 4 hours, even if you do not feel the need to urinate. Try to empty your bladder completely every time. After urinating, wait a minute. Then try to urinate again. Make sure you are in a relaxed position while urinating. If your incontinence is caused by nerve problems, keep a log of the medicines you take and the times you go to the bathroom. Keep all follow-up visits. This is important. Where to find more information [employer] [place] [employer]: www.niddk.nih.gov [employer]: www.urologyhealth.org Contact a health care provider if: You have pain that gets worse. Your incontinence gets worse. Get help right away if: You have a fever or chills. You are unable to urinate. You have redness in your groin area or down your legs. Summary Urinary incontinence refers to a condition in which a person is unable to control where and when to pass urine. This condition may be caused by medicines, infection, weak bladder muscles, weak pelvic floor muscles, enlargement of the prostate (in men), or surgery. Factors such as older age, obesity, and childbirth, menopause, neurological diseases, and chronic coughing may increase your risk for developing this condition. Types of urinary incontinence include urge incontinence, stress incontinence, overflow incontinence, and functional incontinence. This condition is usually treated first with lifestyle and behavioral changes, such as quitting smoking, eating a healthier diet, and doing regular pelvic floor exercises. Other treatment options include medicines, bulking agents, medical devices, electrical nerve stimulation, or surgery. This information is not intended to replace advice given to you by your health care provider. Make sure you discuss any questions you have with your health care provider. Document Revised: 11/09/2020 Document Reviewed: 11/09/2020 [employer] Patient Education 2022 [employer]. 07/28/2023 14:29:01 Kegel Exercises Kegel Exercises Kegel exercises can help strengthen your pelvic floor muscles. The pelvic floor is a group of muscles that support your rectum, small intestine, and bladder. In females, pelvic floor muscles also help support the uterus. These muscles help you control the flow of urine and stool (feces). Kegel exercises are painless and simple. They do not require any equipment. Your provider may suggest Kegel exercises to: Improve bladder and bowel control. Improve sexual response. Improve weak pelvic floor muscles after surgery to remove the uterus (hysterectomy) or after , in females. Improve weak pelvic floor muscles after prostate gland removal or surgery, in males. Kegel exercises involve squeezing your pelvic floor muscles. These are the same muscles you squeeze when you try to stop the flow of urine or keep from passing gas. The exercises can be done while sitting, standing, or lying down, but it is best to vary your position. Ask your health care provider which exercises are safe for you. Do exercises exactly as told by your health care provider and adjust them as directed. Do not begin these exercises until told by your health care provider. Exercises How to do Kegel exercises: 1.Squeeze your pelvic floor muscles tight. You should feel a tight lift in your rectal area. If you are a female, you should also feel a tightness in your vaginal area. Keep your stomach, buttocks, and legs relaxed. 2.Hold the muscles tight for up to 10 seconds. 3.Breathe normally. 4.Relax your muscles for up to 10 seconds. 5.Repeat as told by your health care provider. Repeat this exercise daily as told by your health care provider. Continue to do this exercise for at least 4 6 weeks, or for as long as told by your health care provider. You may be referred to a physical therapist who can help you learn more about how to do Kegel exercises. Depending on your condition, your health care provider may recommend: Varying how long you squeeze your muscles. Doing several sets of exercises every day. Doing exercises for several weeks. Making Kegel exercises a part of your regular exercise routine. This information is not intended to replace advice given to you by your health care provider. Make sure you discuss any questions you have with your health care provider. Document Revised: 08/15/2021 Document Reviewed: 08/15/2021 [employer] Patient Education 2022 [employer]. Follow Up Care 07/10/2023 10:05:29 With:MARKOS Cornell APRN, MENDEL Ibarra, URL Address: When: Unknown Comments:4 months [facility] Evaluation + Plan note Note Date & Type Note Facility Evaluation + Plan note No data available for this section [facility] Evaluation note Note Date & Type Note Facility Evaluation note Diagnosis Onset Date Varicose veins of bilateral lower extremities with other complications [facility] Work Phone: Hospital Discharge instructions Note Date & Type Note Facility Hospital Discharge instructions No data available for this section [facility] Progress note Note Date & Type Note Facility Progress note No data available for this section [facility] Summary Purpose Family History No Family History Records Found No data available for this section No data available for this section No Family History Records Found No data available for this section No Family History Records FoundNo Family History Records FoundNo Family History Records FoundNo Family History Records Found No data available for this section No Family History Records FoundNo Family History Records FoundNo Family History Records FoundNo Family History Records FoundNo Family History Records Found Advance Directives Advance Directive Response Recorded Date/ Time Advance Directives No December 8:36am Advance Directive Response Recorded Date/ Time Advance Directives No December 7:36am Chief Complaint and Reason for Visit Chief Complaint REF BY S FOR VARIC OSE VEINS Reason for Visit Varicose veins of bi lateral lower extremities with other complications Chief Complaint [facility] I83.813 Reason for Visit Varicose veins of bi lateral lower extremities with other complications Chief Complaint Admit Date Varithena lt leg April 15, 2024 9:10am 5 week follow up; Varithena on 04/15/24 May 16, 2024 3:26pm sclero lt leg June 17, 2024 10:28am Reason for Visit Admit Date Varicose veins of bilateral lower extremities with other complications May 16, 2024 3:26pm Additional Source Comments Patient Care team informatio n (unrecognized section and content) Team Status: Active Member Role Status Dates Claire Matt [facility] Primary Care Provider Activ e Team Status: Inactive Member Role Status Dates Christiano Beckford MD Attending Provider Active S tart: January 25, 2024 End: January 25, 2024 Claire Matt [facility] Primary Care Provider Activ e Start: January 25, 2024 End: January 25, 2024 Team Status: Inactive Member Role Status Dates Claire Matt [facility] Primary Care Provider Activ e Start: February 04, 2024 End: February 04, 2024 Christiano Beckford MD Attending Provider Active S tart: February 04, 2024 End: February 04, 2024 Team Status: Inactive Member Role Status Dates Claire Matt [facility] Primary Care Provider Activ e Start: April 15, 2024 End: April 15, 2024 Christiano Beckford MD Attending Provider Active S tart: April 15, 2024 End: April 15, 2024 Team Status: Inactive Member Role Status Dates Claire Matt [facility] Primary Care Provider Activ e Start: May 16, 2024 End: May 16, 2024 Christiano Beckford MD Attending Provider Active S tart: May 16, 2024 End: May 16, 2024 Team Status: Inactive Member Role Status Dates Claire Matt [facility] Primary Care Provider Activ e Start: June 17, 2024 End: June 17, 2024 Christiano Beckford MD Attending Provider Active S tart: June 17, 2024 End: June 17, 2024 INFORMATION SOURCE (unrecogn ized section and content) DATE CREATED AUTHOR 05/11/2023 [facility] EPIC DATE CREATED AUTHOR AUTHOR'S ORGANIZ ATION 12/26/2023 [facility] DATE CREATED AUTHOR AUTHOR'S ORGANIZ ATION 02/09/2024 [facility] DATE CREATED AUTHOR AUTHOR'S ORGANIZ ATION 04/07/2024 [facility] Goals (unrecognized section and content) Goals may be documented in a n alternate section FOR RECORDS PERTAINING TO PATIENTS WHO ARE OR HAVE BEEN ENROLLED IN A CHEMICAL DEPENDENCY/SUBSTANCEABUSE PROGRAM, SOME INFORMATION MAY BE OMITTED. This clinical summary was aggregated from multiple sources. Caution should be exercised in using it in the provision of clinical care. This summary normalizes information from multiple sources, and as a consequence, information in this document may materially change the coding, format and clinical context of patient data. In addition, data may be omitted in some cases. CLINICAL DECISIONS SHOULD BE BASED ON THE PRIMARY CLINICAL RECORDS. [employer] [facility]. provides no warranty or guarantee of the accuracy or completeness of information in this document.
== END 2024-06-22 09:58 | disposition home or self-care (01) ==
LOC: MAMMO 09:58
PROVIDERS: Family Provider Family Medicine; PCP Nurse Practitioner Family; Visit Provider Nurse Practitioner Family
DX: Z12.31 Encounter for screening mammogram for malignant neoplasm of breast (principal); Z80.0 Family history of malignant neoplasm of digestive organs; Z80.8 Family history of malignant neoplasm of other organs or systems
CPT/HCPCS: 77063; 77067